=== PATIENT | male | born 1980 | race Caucasian/White ===

== ENCOUNTER 2017-11-04 03:15 | Inpatient (IN) ==
[2017-11-05] MEDS ORDERED: Morphine Inj 4 MG/ML Vial ONE (23:18)
[2017-11-06] MEDS ORDERED: Acetaminophen 325 MG Tablet PO PRN (01:43)
[2017-11-06] MEDS ORDERED: Sod Chloride 0.9% Inj 1,000 ML IV.SIG SCH (02:00)
[2017-11-06] MEDS: Morphine Inj 4 MG/ML Vial IV.PUSH PRN ×6 (05:49→23:13)
[2017-11-06] MEDS: Pantoprazole Inj 40 MG Vial IV.PUSH SCH (05:50)
[2017-11-06] MEDS: Methocarbamol 500 MG Tablet PO SCH ×3 (05:50→22:02)
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
[2017-11-06] MEDS ORDERED: Multivitamin Inj 10 ML, Thiamine Inj 100 MG, Folic Acid Inj 1 MG in Sodium Chlor 0.9% I... IV.SIG SCH (08:00)
[2017-11-06 08:19] LABS: Baso % (Auto) 0.7 % (0.0-2.0); Eos # (Auto) 0.1 th/mm3 (0.0-0.4); Eos % (Auto) 2.7 % (0.0-4.0); Hematocrit 37.5 % (39.0-51.0); Lymph # (Auto) 1.4 th/mm3 (1.0-4.8); Lymph % (Auto) 26.4 % (9.0-44.0); Mean Corpuscular HGB Conc 34.6 % (32.0-36.0); Mean Corpuscular Hemoglobin 32.1 pg (27.0-34.0); Mean Corpuscular Volume 92.9 fL (80.0-100.0); Mean Platelet Volume 7.6 fL (7.0-11.0); Mono # (Auto) 0.7 th/mm3 (0.0-0.9); Mono % (Auto) 12.4 % (0.0-8.0); Neut # (Auto) 3.1 th/mm3 (1.8-7.7); Neut % (Auto) 57.8 % (16.0-70.0); Platelet Count 180 th/mm3 (150-450); Red Blood Count 4.04 mil/mm3 (4.50-5.90); White Blood Count 5.4 th/mm3 (4.0-11.0)
[2017-11-06 08:39] LABS: Anion Gap 7 meq/L (5-15); Blood Urea Nitrogen 4 mg/dL (7-18); Carbon Dioxide 27.3 meq/L (21.0-32.0); Chloride 106 meq/L (98-107); Glomerular Filtration Rate Greater Than 89 mL/min (>89); Glucose,Random 95 mg/dL (74-106); Potassium 3.6 meq/L (3.5-5.1); Sodium 140 meq/L (136-145)
[2017-11-06] MEDS: Gabapentin 300 MG Capsule PO SCH ×3 (08:44→17:42)
[2017-11-06] MEDS: Senna/Docusate Sodium 8.6/50 MG Tablet PO SCH ×2 (08:44→22:02)
[2017-11-06] MEDS: Lidocaine 5% Patch T-DERMAL SCH (08:45)
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
[2017-11-07] MEDS: Morphine Inj 4 MG/ML Vial IV.PUSH PRN ×7 (02:38→22:26)
[2017-11-07] MEDS: Pantoprazole Inj 40 MG Vial IV.PUSH SCH (05:41)
[2017-11-07] MEDS: Methocarbamol 500 MG Tablet PO SCH (05:41)
[2017-11-07 06:22] LABS: Hematocrit 35.9 % (39.0-51.0); Hemoglobin 12.5 gm/dL (13.0-17.0); Mean Corpuscular HGB Conc 34.7 % (32.0-36.0); Mean Corpuscular Hemoglobin 32.1 pg (27.0-34.0); Mean Corpuscular Volume 92.4 fL (80.0-100.0); Mean Platelet Volume 7.3 fL (7.0-11.0); Platelet Count 193 th/mm3 (150-450); Red Blood Count 3.89 mil/mm3 (4.50-5.90); Red Cell Distribution Width 14.3 % (11.6-17.2); White Blood Count 5.2 th/mm3 (4.0-11.0)
[2017-11-07] MEDS: Senna/Docusate Sodium 8.6/50 MG Tablet PO SCH ×2 (08:02→20:38)
[2017-11-07] MEDS: Gabapentin 300 MG Capsule PO SCH ×3 (08:02→17:45)
[2017-11-07] MEDS: Lidocaine 5% Patch T-DERMAL SCH (08:03)
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
[2017-11-07] MEDS: diazePAM 2 MG Tablet PO SCH ×2 (14:39→23:56)
[2017-11-08 05:49] LABS: Baso % (Auto) 0.6 % (0.0-2.0); Eos # (Auto) 0.3 th/mm3 (0.0-0.4); Eos % (Auto) 3.8 % (0.0-4.0); Hematocrit 37.3 % (39.0-51.0); Hemoglobin 12.9 gm/dL (13.0-17.0); Lymph # (Auto) 1.2 th/mm3 (1.0-4.8); Lymph % (Auto) 17.3 % (9.0-44.0); Mean Corpuscular HGB Conc 34.6 % (32.0-36.0); Mean Corpuscular Hemoglobin 31.9 pg (27.0-34.0); Mean Corpuscular Volume 92.2 fL (80.0-100.0); Mean Platelet Volume 7.4 fL (7.0-11.0); Mono # (Auto) 0.6 th/mm3 (0.0-0.9); Neut # (Auto) 4.7 th/mm3 (1.8-7.7); Neut % (Auto) 69.3 % (16.0-70.0); Platelet Count 228 th/mm3 (150-450); Red Blood Count 4.05 mil/mm3 (4.50-5.90); Red Cell Distribution Width 14.1 % (11.6-17.2); White Blood Count 6.8 th/mm3 (4.0-11.0)
[2017-11-08] MEDS: diazePAM 2 MG Tablet PO SCH (05:50)
[2017-11-08] MEDS: Pantoprazole Inj 40 MG Vial IV.PUSH SCH (05:50)
[2017-11-08] MEDS: Morphine Inj 4 MG/ML Vial IV.PUSH PRN ×2 (05:50→09:39)
[2017-11-08 06:19] LABS: Anion Gap 9 meq/L (5-15); Blood Urea Nitrogen 7 mg/dL (7-18); Calcium 8.2 mg/dL (8.5-10.1); Carbon Dioxide 28.3 meq/L (21.0-32.0); Chloride 101 meq/L (98-107); Glomerular Filtration Rate Greater Than 89 mL/min (>89); Glucose,Random 80 mg/dL (74-106); Potassium 4.1 meq/L (3.5-5.1); Sodium 138 meq/L (136-145)
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
[2017-11-08] MEDS: Senna/Docusate Sodium 8.6/50 MG Tablet PO SCH (08:25)
[2017-11-08] MEDS: Gabapentin 300 MG Capsule PO SCH ×2 (08:25→12:28)
[2017-11-08] MEDS: Lidocaine 5% Patch T-DERMAL SCH (08:26)
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
== END 2017-11-08 12:35 | disposition home or self-care (01) ==
LOC: N07 05:17
PROVIDERS: ADMIT Surgery; ATTEND Surgery